=== PATIENT | male | born 1965 | race African-American/Black ===

== ENCOUNTER 2016-07-29 12:36 | Emergency (ER) | payer SELFPAY ==
[~2016-07-29 12:36] MED LIST: KEFLEX PO; ZOVIRAX800 MG PO
== END 2016-07-29 14:18 | disposition home or self-care (01) ==
LOC: CFTX 12:36
DX: L02.31 Cutaneous abscess of buttock (principal); F17.210 Nicotine dependence, cigarettes, uncomplicated
CPT/HCPCS: 99282

== ENCOUNTER 2016-07-31 11:20 | Emergency (ER) | payer SELFPAY | END 2016-07-31 11:21 | disposition home or self-care (01) | LOC: CFTX 11:20 | DX: Z48.01 Encounter for change or removal of surgical wound dressing (principal); F17.210 Nicotine dependence, cigarettes, uncomplicated | CPT/HCPCS: 99281 ==